=== PATIENT | male | born 1995 | race Caucasian/White ===

== ENCOUNTER → 2019-10-31 | Outpatient (CLI) | payer OTHER | LOC: COL.RAD 08:43 | DX: R56.9 Unspecified convulsions (principal); Z87.820 Personal history of traumatic brain injury | CPT/HCPCS: A9585 ==

== ENCOUNTER → 2019-11-23 | Outpatient (CLI) | payer OTHER | LOC: COL.CARD 12:40 | DX: R56.9 Unspecified convulsions (principal) ==